=== PATIENT | female | born 2005 | race Two or more races ===

== ENCOUNTER → 2023-12-21 | Emergency (ER) | payer OTHER ==
[~2023-12-21] VITALS: Ht 165.1 cm; Wt 100.2 kg
== END | disposition left against medical advice (07) ==
LOC: ER 20:58
DX: Z53.21 Procedure and treatment not carried out due to patient leaving prior to being seen by health care provider (principal)

== ENCOUNTER 2025-03-14 09:03 | Emergency (ER) | payer OTHER ==
[~2025-03-14] VITALS: Ht 167.6 cm; Wt 110.7 kg
[2025-03-14] MEDS ORDERED: KETOROLAC TROMETHAMINE 60 MG VIAL IM STA (09:56)
[2025-03-14] MEDS ORDERED: KETOROLAC TROMETHAMINE 60 MG VIAL IM ONE (10:17)
== END 2025-03-14 10:42 | disposition home or self-care (01) ==
LOC: ER 09:03
DX: M94.0 Chondrocostal junction syndrome [Tietze] (principal)

== ENCOUNTER 2025-07-12 09:56 | Emergency (ER) | payer OTHER ==
[~2025-07-12] VITALS: Ht 165.1 cm; Wt 108.9 kg
[2025-07-12 11:49] LABS: BASO % 0.6 % (0.1-1.2); EOS # 0.08 (0.04-0.54); EOS % 1.5 % (0.7-7.0); LYMPH # 2.01 (1.18-3.74); LYMPH % 38.1 % (19.3-53.1); MEAN PLATELET VOLUME 10.70 fl (9.4-12.4); MONO # 0.23 (0.24-0.82); MONO % 4.4 % (4.7-12.5); NEUT # 2.92 (1.56-6.13); NEUT % 55.2 % (34.0-71.1); RED CELL DISTRIBUTION WIDTH 16.3 % (11.6-14.4)
[2025-07-12 13:06] LABS: URINE APPEARANCE Cloudy; URINE BILIRRUBIN Negative (NEGATIVE); URINE BLOOD Small; URINE COLOR Dark Yellow; URINE GLUCOSE Negative (NEGATIVE); URINE LEUKOCYTE Negative; URINE NITRATE Negative; URINE PROTEIN 30 (NEGATIVE); URINE UROBILINOGEN 1.0 E.U./dl
[2025-07-12 13:10] LABS: URINE BACTERIA 5973.4 uL (0.0-1933); URINE CAST 1.90 uL (0.0-1.40); URINE EPITHELIAL CELLS 42.3 uL (0.0-38.8); URINE RBC 36.6 uL (0.0-20.8); URINE WBC 14.6 uL (0.0-23.2)
[2025-07-12 13:17] LABS: URINE KETONE 80 (NEGATIVE)
[2025-07-12 13:20] LABS: BUN CREA RATIO 13.0 (7.0-25.0); CREATININE SERUM 0.54 mg/dL (0.55-1.02); GFR 142.51; GLUCOSE FASTING 88.0 mg/dL (65-100); OSMOLALITY SERUM 281.0 MOSM/KG (275-295)
[2025-07-12 13:21] LABS: HCG QUANTITATIVE 32771.0 mUI/mL (1-3)
== END 2025-07-12 17:02 | disposition home or self-care (01) ==
LOC: ER 09:57
PROVIDERS: Emergency Medicine
DX: O20.9 Hemorrhage in early pregnancy, unspecified (principal); Z3A.08 8 weeks gestation of pregnancy